=== PATIENT | female | born 1985 | race Caucasian/White ===

== ENCOUNTER 2019-03-30 14:24 | Inpatient (IN) | payer MEDICAID, OTHER ==
[~2019-03-30] VITALS: Ht 162.6 cm; Wt 82.2 kg
[~2019-03-30 14:24] MED LIST: ONDA4TAB10 PO
[2019-03-30 15:32] LABS: MICROSCOPIC INDICATED
[2019-03-30] MEDS ORDERED: OXYTOCIN 30U/ 0.9% NaCL 500ML 500 ML IV ONE (15:33)
[2019-03-30] MEDS ORDERED: D5%-LACTATED RINGERS 1,000 ML IV SCH (15:33)
[2019-03-30] MEDS ORDERED: OXYTOCIN 30U/ 0.9% NaCL 500ML 500 ML IV PRN (15:44)
[2019-03-30 16:00] VITALS: BP 135/64
[2019-03-30] MEDS ORDERED: FENTANYL PF 100 MCG/2ML IVPush PRN (16:00)
[2019-03-30] MEDS ORDERED: CALCIUM CARBONATE 500 MG TAB.CHEW PO PRN (16:00)
[2019-03-30] MEDS ORDERED: PENICILLIN GK 5,000,000 UNITS in DEXTROSE 5% 100 ML IVPB ONE (16:00)
[2019-03-30] MEDS ORDERED: FENTANYL PF 100 MCG/2ML IV PRN (16:00)
[2019-03-30] MEDS ORDERED: ONDANSETRON 2MG/ML, 2ML IVPush PRN (16:00)
[2019-03-30] MEDS ORDERED: NEWBORN KIT ONE (16:07)
[2019-03-30] MEDS ORDERED: MISOPROSTOL 200 MCG TABLET ONE (16:07)
[2019-03-30] MEDS ORDERED: OXYTOCIN 30U/ 0.9% NaCL 500ML 500 ML ONE (16:07)
[2019-03-30] MEDS ORDERED: LIDOCAINE 1%, 20ML ONE (16:07)
[2019-03-30 16:10] LABS: BASOPHILS # (AUTO) 0.05 x10^3/uL (0-0.1); BASOPHILS % (AUTO) 1 % (0-1); EOSINOPHILS # (AUTO) 0.03 x10^3/uL (0-0.4); EOSINOPHILS % (AUTO) 1 % (1-7); LYMPHOCYTES # (AUTO) 2.21 x10^3/uL (1-3.4); LYMPHOCYTES % (AUTO) 29 % (22-44); MD NO; MEAN CORPUSCULAR HEMOGLOBIN 29.2 pg (27.0-34.8); MEAN CORPUSCULAR HGB CONC 32.9 g/dL (32.4-35.8); MEAN CORPUSCULAR VOLUME 88.8 fL (80-100); MEAN PLATELET VOLUME 11.1 fL (7.4-10.4); MONOCYTES # (AUTO) 0.51 x10^3/uL (0.2-0.8); MONOCYTES % (AUTO) 7 % (2-9); NEUTROPHILS # (AUTO) 4.75 x10^3/uL (1.8-6.8); NEUTROPHILS % (AUTO) 63 % (42-75); PLATELET COUNT 156 x10^3/uL (130-400); RED BLOOD COUNT 4.38 x10^6/uL (3.82-5.3); RED CELL DISTRIBUTION WIDTH 15.4 % (9.6-15.2)
[2019-03-30] MEDS: LACTATED RINGERS 1,000 ML IV SCH ×2 (16:17→19:35)
[2019-03-30] MEDS: PENICILLIN GK 2,500,000 UNITS in DEXTROSE 5% 100 ML IVPB SCH (20:13)
[2019-03-30] MEDS ORDERED: FENTANYL/BUPIV./NS/PF 250 ML EPIDCONT SCH (23:03)
[2019-03-30] MEDS ORDERED: LACTATED RINGERS 1,000 ML IV SCH (23:03)
[2019-03-30] MEDS ORDERED: BUPIVACAINE 0.25% ONE (23:29)
[2019-03-30] MEDS ORDERED: EPHEDRINE 50 MG/ML, 1ML IVPush PRN (23:30)
[2019-03-30] MEDS ORDERED: LACTATED RINGERS 1,000 ML IVBOLUS PRN (23:30)
[2019-03-30] MEDS ORDERED: FENTANYL PF 500 MCG, BUPIVACAINE/PF 0.5%, 30ML 62.5 ML in SODIUM CHLORIDE 0.9% 177.5 ML EPIDCONT SCH (23:30)
[2019-03-31] MEDS: PENICILLIN GK 2,500,000 UNITS in DEXTROSE 5% 100 ML IVPB SCH
[2019-03-31] MEDS ORDERED: FENTANYL PF 100 MCG/2ML ONE (02:58)
[2019-03-31] MEDS: OXYTOCIN 30U/ 0.9% NaCL 500ML 500 ML IV SCH ×3 (03:26→23:26)
[2019-03-31] MEDS ORDERED: ONDANSETRON 2MG/ML, 2ML IV PRN (03:30)
[2019-03-31] MEDS ORDERED: MAGNESIUM HYDROXIDE 8%, 30ML UDC PO PRN (03:30)
[2019-03-31] MEDS ORDERED: MISOPROSTOL 200 MCG TABLET PR PRN (03:30)
[2019-03-31] MEDS ORDERED: MEASLES,MUMPS&RUBELLA VACC/PF 0.5 ML SQ PRN (03:30)
[2019-03-31] MEDS ORDERED: DIPH,PERTUSS(ACELL),TET VAC/PF NC IM-VACC PRN (03:30)
[2019-03-31] MEDS ORDERED: RHOGAM FROM BLOOD BANK 1 NOTE EA IM/IV ONE (03:30)
[2019-03-31] MEDS ORDERED: OXYcodone/APAP 5/325MG TABLET PO PRN (03:30)
[2019-03-31] MEDS ORDERED: ACETAMINOPHEN 325 MG TABLET PO PRN ×2 (03:30)
[2019-03-31] MEDS ORDERED: METOCLOPRAMIDE 5 MG/ML, 2ML IV PRN (03:30)
[2019-03-31] MEDS ORDERED: CALCIUM CARBONATE 500 MG TAB.CHEW PO PRN (03:30)
[2019-03-31] MEDS ORDERED: OXYTOCIN 30U/ 0.9% NaCL 500ML 500 ML ONE (04:23)
[2019-03-31 05:50] VITALS: BP 110/67
[2019-03-31] MEDS: IBUPROFEN 600 MG TABLET PO PRN ×2 (05:52→19:23)
[2019-03-31] MEDS: OXYcodone/APAP 5/325MG TABLET PO PRN ×3 (06:55→22:25)
[2019-03-31 07:20] VITALS: BP 101/65
[2019-03-31] MEDS: DOCUSATE 100 MG CAPSULE PO PRN ×2 (09:33→19:23)
[2019-03-31] MEDS: PRENATAL VIT/IRON/FA 1 EACH TABLET PO SCH (09:33)
[2019-03-31 11:51] LABS: BASOPHILS # (AUTO) 0.03 x10^3/uL (0-0.1); BASOPHILS % (AUTO) 0 % (0-1); EOSINOPHILS % (AUTO) 0 % (1-7); LYMPHOCYTES # (AUTO) 1.95 x10^3/uL (1-3.4); LYMPHOCYTES % (AUTO) 15 % (22-44); MD NO; MEAN CORPUSCULAR HEMOGLOBIN 28.8 pg (27.0-34.8); MEAN CORPUSCULAR HGB CONC 32.7 g/dL (32.4-35.8); MEAN CORPUSCULAR VOLUME 88.1 fL (80-100); MEAN PLATELET VOLUME 10.6 fL (7.4-10.4); MONOCYTES # (AUTO) 0.48 x10^3/uL (0.2-0.8); MONOCYTES % (AUTO) 4 % (2-9); NEUTROPHILS % (AUTO) 81 % (42-75); PLATELET COUNT 134 x10^3/uL (130-400); RED BLOOD COUNT 3.75 x10^6/uL (3.82-5.3); RED CELL DISTRIBUTION WIDTH 16.1 % (9.6-15.2)
[2019-03-31 12:30] VITALS: BP 113/73
[2019-03-31 15:45] VITALS: BP 113/64
[2019-03-31 20:05] VITALS: BP 124/74
[2019-04-01 01:00] VITALS: BP 108/71
[2019-04-01 07:10] VITALS: BP 103/62
[2019-04-01] MEDS: PRENATAL VIT/IRON/FA 1 EACH TABLET PO SCH (08:25)
[2019-04-01] MEDS: DOCUSATE 100 MG CAPSULE PO PRN ×2 (08:25→19:38)
[2019-04-01] MEDS: IBUPROFEN 600 MG TABLET PO PRN ×2 (13:57→19:38)
[2019-04-01] MEDS: OXYTOCIN 30U/ 0.9% NaCL 500ML 500 ML IV SCH ×2 (19:26→19:40)
[2019-04-01 20:00] VITALS: BP 117/77
[2019-04-02] MEDS: IBUPROFEN 600 MG TABLET PO PRN ×2 (03:12→09:50)
[2019-04-02] MEDS: OXYTOCIN 30U/ 0.9% NaCL 500ML 500 ML IV SCH (05:26)
[2019-04-02 07:05] VITALS: BP 111/72
[2019-04-02] MEDS: DOCUSATE 100 MG CAPSULE PO PRN (09:50)
[2019-04-02] MEDS: PRENATAL VIT/IRON/FA 1 EACH TABLET PO SCH (09:50)
[2019-04-02] MEDS ORDERED: IBUP-1222 PO (11:05)
== END 2019-04-02 12:25 | disposition home or self-care (01) | DRG 807 ==
LOC: LDOP 14:24 → LDIP 15:35 → 2NW 03-31 05:20
PROVIDERS: ADMIT Obstetrics & Gynecology; ATTEND Obstetrics & Gynecology
PROC: 10E0XZZ Delivery of Products of Conception, External Approach (ICD-10-PCS; principal; 2019-03-31)
PROC: 10907ZC Drainage of Amniotic Fluid, Therapeutic from Products of Conception, Via Natural or Artificial Opening (ICD-10-PCS; 2019-03-31)
PROC: 10H07YZ Insertion of Other Device into Products of Conception, Via Natural or Artificial Opening (ICD-10-PCS; 2019-03-31)
DX: O80 Encounter for full-term uncomplicated delivery (principal); Z37.0 Single live birth; Z3A.36 36 weeks gestation of pregnancy
CPT/HCPCS: 36415; 81001; 84112; 85025; 86762; 86850; 86900; 87086; 87147; 87340; 87806; 90715; G0378; J2540; J3010; G0475; J2590; J7120